=== PATIENT | female | born 1955 | race Caucasian/White ===

== ENCOUNTER 2022-08-25 13:42 | Outpatient (CLI) | payer MEDICARE, SELFPAY ==
--- NOTE | 2022-08-25 13:57 | MM_ITS ---
WS: [id number] BILATERAL 3D TOMOSYNTHESIS DIGITAL SCREENING MAMMOGRAPHY WITH CAD CLINICAL INFORMATION: SCREENING HISTORY: Screening mammogram. Chronic RIGHT lateral breast pain. History of benign biopsies. COMPARISON: 2020 TECHNIQUE: Bilateral CC and MLO views. FINDINGS: Scattered fibroglandular densities bilaterally. No suspicious focal mass, asymmetry, calcifications, or architectural distortion. No evidence of malignancy. Punctate and lucent centered calcifications. Vascular calcification. Asymmetric density upper outer LEFT breast stable since 2019. Stable bilatera l ovoid nodular densities previously evaluated. MM/[place] [id number] IMPRESSION: BI-RADS: 2-Benign FOLLOW UP: 1 Year Follow-up Recommend return to annual screening mammography.
== END 2022-08-25 13:43 | disposition home or self-care (01) ==
PROVIDERS: PCP Family Medicine; Visit Provider Family Medicine
DX: Z12.31 Encounter for screening mammogram for malignant neoplasm of breast (principal)
CPT/HCPCS: 77063; 77067

== ENCOUNTER → 2024-03-14 13:12 | Outpatient (BNVA) | payer MEDICARE, SELFPAY | PROVIDERS: PCP Family Medicine; Visit Provider Specialist | DX: M17.12 Unilateral primary osteoarthritis, left knee | CPT/HCPCS: 99204 ==

== ENCOUNTER 2024-12-15 17:02 | Emergency (ER) | payer MEDICARE, SELFPAY ==
--- OUTSIDE RECORDS SUMMARY | 2023-10-24 16:30 | XMS_ITS ---
Author Organization [facility] Address [address] [facility], [address] [place], [place] [id number] Care Team Providers Care Jewelry Polisher Name Role Phone Geeta Em MD Primary Care Provider Servando Murray Unavailable [phone] Servando Medina MD Unavailable Unavailable Migration, Provider Unavailable Unavailable [facility] Encounter Medications Medication SIG (Take, Route, Frequency, Duration) Notes Start Date End Date Status lamoTRIgine *Please review a nd pick correct strength-formulatio n from Medispan options. If intended option is not shown, discontinue and re-order from Quick Search* Active COMPRESSION STOCKINGS 20-30 20-30 [facility] PRN THIGH OR KNEE A:26 C:44.5 *Please review for potential replacement for e-prescription and drug interaction check* 12/11/2017 Active Levothyroxine Sodium *Please rev iew and pick correct strength-formulatio n from Medispan options. If intended option is not shown, discontinue and re-order from Quick Search* Active Encounters Encounter Location Date Provider Diagnosis [facility] [address] [facility] [place], [place] [id number] 10/24/2023 Provider Migration Plan Of Treatment No Information Progress Notes * Gregor MILLER LDOB: (69 yo F)Acc No.[id number]:10/24/2023 Patient: Gregor GALLAGHER Provider: Norris lazcano Migration :1955 A ge:68 Y S ex:Female Date:10/24/2023 Address:[address], [id number] Pcp:Geeta Em MD Subjective: * Chief Complaints: * 1 . [facility] To [facility] Conversion Encounter. * Medical History: * Medications: T aking Levothyroxine Sodium , Notes to Pharmacist: *Please review and pick correct strength-formulation from Medispan options. If intended option is not shown, discontinue and re-order from Quick Search*, Taking lamoTRIgine , Notes to Pharmacist: *Please review and pick correct strength-formulation from Medispan options. If intended option is not shown, discontinue and re-order from Quick Search*, Taking COMPRESSION STOCKINGS 20-30 20-30 [facility] PRN THIGH OR KNEE A:26 C:44.5 , Notes to Pharmacist: *Please review for potential replacement for e- prescription and drug interaction check* Objective: * Vitals: Assessment: Plan: * Treatment: * Images: * Electronic signature of Prov ider Migration on 12/15/2024 at 03:11 PM PDT Sign off status: Pending * Provider: Norris lazcano Migration Date: 0 10/24/2023 Generated for Bozena colon/Stefani/Phillyitting on: 1 03:11 PM PDT
[2024-12-15 17:04] VITALS: BP 157/97; PULSE 72; RESP 18; TEMP 36.9; O2SAT 96
--- NOTE | 2024-12-15 17:05 | XRR_ITS ---
PROCEDURE INFORMATION: Exam: XR Chest Exam date and time: 12/15/2024 5:08 PM Age: 69 years old Clinical indication: Psych clearance TECHNIQUE: Imaging protocol: Radiologic exam of the chest. Views: 1 view. COMPARISON: No relevant prior studies available. FINDINGS: Lungs: Interstitial prominence, most pronounced in the right lung base. No consolidation. Pleural spaces: Unremarkable. No pleural effusion. No pneumothorax. Heart/Mediastinum: Unremarkable. No cardiomegaly. Bones/joints: Unremarkable. XR/XR chest 1V portable [id number] IMPRESSION: Mild interstitial prominence , particularly in the right lung base. Findings may reflect chronic interstitial changes, pulmonary edema or atypical/viral infection.
--- OUTSIDE RECORDS SUMMARY | 2024-12-15 17:11 | XMS_ITS | Clinical Summary ---
Author Organization [facility] [place] Address [address] [place] [address] Phone Care Team Providers Care Process Design Engineer Name Role Phone Charisse Mckeon MD Primary Care Provider Allergies Active Allergy Reactions Criticality Noted Date Comments Meperidine Hallucination Low 03/03/2022 Demerol Medications calcium carbonate/vitam in D3 (CALCIUM WITH VITAMIN D3 ORAL) Take 1,200 mg by mouth daily. Active ibuprofen (MOTRIN) 800 mg tabletIndicatio ns:Pain involving joints of fingers of both hands Take 1 Tablet (800 mg) by mouth every 8 hours as needed for Pain, Mild. 90 Tablet 2 12/05/2022 Active celecoxib (CeleBREX) 200 mg capsule TAKE 1 CAPSULE BY MOUTH EVERY DAY 30 Capsule 1 02/15/2024 Active lamoTRIgine (LaMICtal) 200 mg tablet Take 2 Tablets (400 mg) by mouth daily. 200 Tablet 1 06/10/2024 Active lisinopriL (PRINIVIL) 10 mg tablet Take 1 Tablet (10 mg) by mouth daily. 100 Tablet 1 06/10/2024 Active levothyroxine 100 mcg tablet Take 1 Tablet (100 mcg) by mouth daily in the morning. 100 Tablet 1 06/10/2024 Active escitalopram oxalate (LEXAPRO) 10 mg tablet Take 1 Tablet (10 mg) by mouth daily. 100 Tablet 1 06/10/2024 Active triamcinolone acetonide (KENALOG) 0.025 % CreamIndication s:Rash,Urticari a Apply to affected area 2 times daily. Apply to affected area on leg 15 Gram 10/11/2024 Active predniSONE (DELTASONE) 10 mg tabletIndicatio ns:Rash,Urticar ia Take 4 tablets for 3 days then 3 tablets for 3 days then 2 tablets for 3 days and 1 tablet for 3 days 30 Tablet 10/18/2024 Active Active Problems Problem Noted Date Diagnosed Date Fall (on)(from) sidewalk curb, initial encounter 03/03/2022 Acute pain of right knee 03/03/2022 Acute midline low back pain without sciatica 10/2022 Benign hypertension 10/24/2021 Situational depression 10/24/2021 Hypothyroidism 10/24/2021 LBBB (left bundle branch block) 10/24/2021 Resolved Problems Problem Noted Date Diagnosed Date Resolved Date Moderate episode of recurren t major depressive disorder 03/17/2022 06/05/2023 Nonintractable epilepsy with out status epilepticus 10/24/2021 10/11/2024 Encounters Date Type Department Care Team Description 11/09/2024 External Device Data [facility] ABSTRACTION Provider, Abstract 10/25/2024 External Device Data [facility] ABSTRACTION Provider, Abstract 10/18/2024 Orders Only [address] [phone] Carmelita Reynolds, WIRE STRANDER Rash (Primary Dx); Urticaria 10/17/2024 Nurse Triage [address] [phone] Charisse Mckeon MD 10/11/2024 4:40 PM CDT Office Visit [address] [phone] Carmelita Reynolds, WIRE STRANDER Rash (Primary Dx); Urticaria 10/11/2024 External Device Data [facility] ABSTRACTION Provider, Abstract from Last 3 Months Immunizations Immunization Administration Dates Next Due Zoster Vaccine Live SQ 08/29/2022,04/10/2022 Family History Medical History Relation Name Comments Heart Disease Mother Heart Disease Other Heart Disease Paternal Grandfather Heart Disease Paternal Grandmother Breast Cancer Sister HALF Relation Name Status Comments Mother Other Paternal Grandfather Paternal Grandmother Sister HALF Alive Social History Tobacco Use Types Packs/Day Years Used Date Smoking Tobacco: Never Smokeless Tobacco: Never Tobacco Cessation:Counseling Given: Not Answered Alcohol Use Standard Drinks/Week Comments Yes 0 (1 standard drink = 0.6 oz pur e alcohol) Financial Resource Strain Answer Date R ecorded How hard is it for you to pa y for the very basics like food, housing, medical care, and heating? Patient declined 01/20/2022 Food Insecurity Answer Date Recorded In the past 12 months, have you worried that your food would run out before you had money to buy more? Patient declined 2021 In the past 12 months, did y ou run out of food and didn't have money to buy more? Patient declined 01/20/2022 Transportation Needs Answer Date Record ed In the past 12 months, has l ack of transportation kept you from medical appointments or from getting medications? Patient declined 01/20/2022 Lack of Transportation (Non-Medical) Not on file 01/20/2022 Feeling Safe Answer Date Recorded Are you in a relationship wi th someone who hurts you emotionally and/or physically? No 04/12/2023 Comments No Sex and Gender Information Value Date Recorded Sex Assigned at Not on file Legal Sex Female 9:40 AM CDT Gender Identity Not on file Sexual Orientation Not on file Last Filed Vital Signs Vital Sign Reading Time Taken Comments Blood Pressure 110/83 10/11/2024 4:29 PM CDT Pulse 75 10/11/2024 4:29 PM CDT Temperature 36.2 C (97.2 F) 10/11/2024 4:29 PM CDT Respiratory Rate 16 10/11/2024 4:29 PM CDT Oxygen Saturation 96% 10/11/2024 4:29 PM CDT Inhaled Oxygen Concentration - - Weight 80.6 kg (177 lb 9.6 oz) 10/11/2024 4:29 P M CDT Height 161.3 cm (5' 3.5 ) 10/11/2024 4:29 PM CDT Body Mass Index 30.97 10/11/2024 4:29 PM CDT Plan of Treatment Upcoming Encounters Date Type Department Care Team (Late st Contact Info) Description 01/02/2025 2:40 PM RETAIL ADVERTISING SALES MANAGER Office Visit [facility] [address] [phone] Charisse Mckeon MD [address] [phone] Health Maintenance Due Date Last Done Comments Pre-Diabetes and Diabetes Screening 1955 FIT/ DNA Q 3 YEARS (AUTO ORDER) 1972 FIT/FOBT Q 1 YEAR (AUTO ORDER) 1972 PNEUMOCOCCAL VACCINE 50+ YEA RS (1 of 2 - PCV) 1973 FIT-DNA Q 3 years 08/22/1999 FIT/FOBT Q 1 year 08/22/1999 Flex Sig/CT Colonography Q 5 years 08/22/1999 RSV VACCINE (60+ or ) (1 - Risk 50-74 years 1-dose series) 2004 ZOSTER VACCINE (2 of 3) 10/24/2022 08/29/2022, 04/10 [place] Preventative Visit/Annual Wellness Visit 02/24/2024 12/31/2023, 08/25/2022, 01/20/2022 INFLUENZA VACCINE (#1) 2024 4, 06/05/2023, 12/16/2016 COVID-19 Vaccine (3 - 2024-2 6 season) 2024 12/18/2020, 11/20/2020 FLEX SIG/CT COLONOGRAPHY Q 5 YEARS (AUTO ORDER) 12/01/2024 12/02/2019, 12/02/2019 BREAST CANCER SCREENING 02/09/2025 02/10/20 24, 08/25/2022, 11/25/2019, Additional history exists OSTEOPOROSIS SCREENING 03/03/2027 3, 01/04/2021, 01/04/2021, Additional history exists DTAP/TDAP/TD VACCINES (2 - T d or Tdap) 02/21/2029 02/21/2019 COLORECTAL CANCER SCREENING (AUTO ORDER) 12/01/2029 12/02/2019 COLORECTAL SCREENING 12/01/2029 12/02/2019 Colorectal Cancer Screening (AUTO ORDER) 12/01/2029 Colorectal Cancer Screening 12/01/2029 Procedures Procedure Name Priority Date/Time Associated Diagnosis Comments MAMMO 3D EMILY SCREEN BILAT W OR WO CAD Routine 02/10/2024 12:30 PM RETAIL ADVERTISING SALES MANAGER Screening mammogram, encounter for XR DEXA BONE DENSITY AXIAL 1 OR MORE SITES Routine 03/03/2022 11:31 AM RETAIL ADVERTISING SALES MANAGER Asymptomatic menopause ENDOSCOPY, COLON, SCREENING Routine 12/02/2019 from Last 3 Months or Most Recently Relevant to Health Maintenance Results * MAMMO 3D EMILY SCREEN BILAT W OR WO CAD (02/10/2024 12:30 PM RETAIL ADVERTISING SALES MANAGER) Anatomical Region Laterality Modality Breast Bilateral Mammography, Dig ital Radiography Impressions 02/26/2024 3:24 PM RETAIL ADVERTISING SALES MANAGER : No mammographic evidence of malignancy. BI-RADS ASSESSMENT: 1 - Negative RECOMMENDATION: Routine annual screening mammography. Narrative 02/26/2024 3:24 PM RETAIL ADVERTISING SALES MANAGER EXAM: MAMMO SCRN BILAT 3D EMILY W OR WO CAD INDICATION: Screening COMPARISON: 08/25/2022 MAMMO PRIOR STUDY, 11/25/2019 MAMMO PRIOR STUDY, 11/25/2019 MAMMO PRIOR STUDY, 10/06/2018 MAMMO PRIOR STUDY, 10/06/2018 MAMMO PRIOR STUDY, 09/17/2018 MAMMO PRIOR STUDY, 12/05/2016 MAMMO PRIOR STUDY, and 12/05/2016 MAMMO PRIOR STUDY BREAST COMPOSITION: There are scattered areas of fibroglandular density. FINDINGS: RIGHT BREAST: There are no suspicious masses, calcifications, or areas of architectural distortion. LEFT BREAST: There are no suspicious masses, calcifications, or areas of architectural distortion. us Charisse Mckeon MD MAMMO ORDERABLES Final Resu lt * XR DEXA BONE DENSITY AXIAL 1 OR MORE SITES (03/03/2022 11:31 AM RETAIL ADVERTISING SALES MANAGER) T-SCORE SPINE -0.30 -1.0 - 1.0 INTER FACE SYSTEM T-SCORE HIP (LEFT) -0.30 -1.0 - 1.0 INTERFACE SYSTEM Anatomical Region Laterality Modality Digital Radiogra phy 03/03/2022 11:3 1 AM RETAIL ADVERTISING SALES MANAGER Impressions 03/03/2022 12:50 PM RETAIL ADVERTISING SALES MANAGER IMPRESSION: Abnormal examination Bone density lies in the osteopenic range in the left proximal femur at the average the patient's age-matched control consistent with age-appropriate physiologic demineralization responsible for her osteopenia. NOF guidelines recommend consideration of FDA-approved medical therapies in patients with FRAX determined 10-year probabilities of hip/major osteoporosis-related fractures equal or greater than 3%/20% respectively. FRAX determined 10-year fracture risk for hip and major osteoporotic fractures are 1.4 and 14% respectively. Narrative 03/03/2022 12:50 PM RETAIL ADVERTISING SALES MANAGER DEXA Evaluation of the Lumbar Spine and Left Proximal Femur Reason for Consultation: Ovarian failure for osteoporosis screening. Evaluation of bone mineral density. The following absorptiometry data were obtained. The quality of this examination is acceptable with regards to count density, processed images, data display and lack of important artifacts (including but not limited to motion and attenuation artifacts). Serial examination number 1. Lumbar spine images demonstrate scoliotic and degenerative changes with spurious elevation of bone density prominent at lower levels. L1-L4 BMD (g/cm2): 1.018 Adult T-score: -0.3 Adult Z-score: 1.7 Left Femoral Neck BMD (g/cm2): 0.706 Adult T-score: -1.3 Adult Z-score: 0.4 Left Total Hip BMD (g/cm2): 0.911 Adult T-score: -0.3 Adult Z-score: 1.1 Procedure Note Destin Maldonado MD - 03/03/2022 DEXA Evaluation of the Lumbar Spine and Left Proximal Femur Reason for Consultation: Ovarian failure for osteoporosis screening. Evaluation of bone mineral density. The following absorptiometry data were obtained. The quality of this examination is acceptable with regards to count density, processed images, data display and lack of important artifacts (including but not limited to motion and attenuation artifacts). Serial examination number 1. Lumbar spine images demonstrate scoliotic and degenerative changes with spurious elevation of bone density prominent at lower levels. L1-L4 BMD (g/cm2): 1.018 Adult T-score: -0.3 Adult Z-score: 1.7 Left Femoral Neck BMD (g/cm2): 0.706 Adult T-score: -1.3 Adult Z-score: 0.4 Left Total Hip BMD (g/cm2): 0.911 Adult T-score: -0.3 Adult Z-score: 1.1 IMPRESSION: Abnormal examination Bone density lies in the osteopenic range in the left proximal femur at the average the patient's age-matched control consistent with age-appropriate physiologic demineralization responsible for her osteopenia. NOF guidelines recommend consideration of FDA-approved medical therapies in patients with FRAX determined 10-year probabilities of hip/major osteoporosis-related fractures equal or greater than 3%/20% respectively. FRAX determined 10-year fracture risk for hip and major osteoporotic fractures are 1.4 and 14% respectively. Charisse Mckeon MD DIAGNOSTIC IMAGING ORDERABL ES Final Result * ENDOSCOPY, COLON, SCREENING (12/02/2019) Abstract Provider GI PROCEDURE ORDERABLES Final Result from Last 3 Months or Most Recently Relevant to Health Maintenance Insurance [facility] [id number] Care Teams Process Design Engineer Relationship Specialty Start Date End Date Charisse Mckeon MD [address] [phone] PCP - General Family Practice 10/24/21
--- OUTSIDE RECORDS SUMMARY | 2024-12-15 17:12 | XMS_ITS | Patient Health Record ---
Author Organization [facility] Address [address] [facility], [address] [id number] Care Team Providers Care Product Safety Head Name Role Phone Maria Antonia JENNINGS, Geeta Primary Care Provider Servando Murray Unavailable [phone] Servando Medina MD Unavailable Unavailable Reason For Referral No Information Medications Medication SIG (Take, Route, Frequency, Duration) [...] discontinue and re-order from Quick Search* Active Social History Tobacco Use: Social History Observation Description Date Details (start date - stop date) Never Smoker NA - NA Alcohol Question Answer Notes Did you have a drink contain ing alcohol in the past year? Yes How often did you have a dri nk containing alcohol in the past year? Two to four times a month (2 points) How many drinks did you have on a typical day when you were drinking in the past year? 1 or 2 (0 points) Points 2 Tobacco: Question Answer Notes Are you a: never smoker Alcohol Screen Question Answer Notes Interpretation Negative Problems Problem Type SNOMED Code ICD Code Onset Dates Problem Status W/U Status Risk Notes Problem Varicose veins of bilateral lower limbs ([id number] 9106) Varicose veins of bilateral lower extremities with other complications (I83.893) Active confirmed Plan Of Treatment Pending Test Test Name Order Date Ultrasound : Leg venous, left 09/09/2018 Ultrasound : Legs venous, bilateral 02/2018 Ultrasound : Legs venous, bilateral 12/24 Insurance Providers Payer Name Payer Address Payer Phone Subscriber Number Group Number Insured Name Patient Relationship to Insured Coverage Start Date Coverage End Date [facility] [address] [facility] [address] 7223 [id number] Gregor Miller Self - patient is the insured MED[employer] OF [place] [address] [place], [place] [phone] [id number] Gregor Miller Self - patient is the insured Medical (General) History Medical History History ICD Code Epilepsy Surgical History Surgery Date(Month/Year) Hysterectomy 1989 Parathyroid removal 2013 Right leg RFA(GSV)+sclero 08/13/18 Left leg RFA(GSV)+sclero 08/27/18
[2024-12-15 17:31] LABS: Hematocrit 40.9 % (36-47); Hemoglobin 13.60 g/dL (11.27-16.99); Mean Corpuscular HGB Conc 33.3 g/dL (30-55); Mean Corpuscular Hemoglobin 30.5 pg (27-33); Mean Corpuscular Volume 91.7 fl (85-98); Nucleated Red Blood Cells % 0 %; Platelet Count 242 10^3/cmm (157-399); Red Blood Count 4.46 10^6/uL (3.85-5.65); White Blood Count 7.61 10^3/uL (3.29-11.43)
--- NOTE | 2024-12-15 17:37 | CTR_ITS ---
PROCEDURE INFORMATION: Exam: CT Head Without Contrast Exam date and time: 12/15/2024 6:19 PM Age: 69 years old Clinical indication: Confusion, altered mental status TECHNIQUE: Imaging protocol: Computed tomography of the head without contrast. Radiation optimization: All CT scans at this facility use at least one of these dose optimization techniques: automated exposure control; mA and/or kV adjustment per patient size (includes targeted exams where dose is matched to clinical indication); or iterative reconstruction. COMPARISON: No relevant prior studies available. RADIATION DOSE METRICS: Total DLP (mGy-cm): 1130.53 FINDINGS: Brain: No mass effect. No hemorrhage. Patchy areas of periventricular and subcortical white matter hypoattenuation, likely the sequela of microvascular ischemic changes. No loss of lopez-white differentiation to suggest an acute infarct. Cerebral ventricles: No ventriculomegaly. Paranasal sinuses: Visualized sinuses are unremarkable. No fluid levels. Mastoid air cells: Visualized mastoid air cells are well aerated. Bones: Unremarkable. No acute fracture. Soft tissues: Unremarkable. CT/CT head wo con* [id number] IMPRESSION: 1. No acute intracranial hemorrhage. 2. Background chronic microvascular ischemic changes.
[2024-12-15 17:44] LABS: Ammonia 17 umol/L (11-51)
[2024-12-15 17:46] LABS: Lactic Sepsis W/Reflex 0.9 mmol/L (0.5-2.2)
--- NOTE | 2024-12-15 17:50 | ECG_ITS ---
[facility] Test Date: 2024-12-15 Pat Name: Gregor Miller Department: Room: Gender: Female Real Property Evaluator: : 1955 Requested By: Ann Seymour Order Number: [id number] Awad MD: Pete Mccoy M.D. Measurements Intervals Victor Rate: 66 P: 53 MT: 183 QRS: -13 QRSD: 144 T: 81 QT: 459 QTc: 484 Interpretive Statements SINUS RHYTHM LEFT BUNDLE BRANCH BLOCK [120+ ms QRS DURATION, 80+ ms Q/S IN V1/V2, 85+ ms R IN I/aVL/V5/V6] No previous ECG available for comparison Electronically Signed On 12-16-2024 15:24:52 CDT by Pete Mccoy M.D. [email or web address]
[2024-12-15 17:55] LABS: Alanine Aminotransferase 13 U/L (0-33); Albumin Level 4.4 g/dL (3.5-5.2); Alkaline Phosphatase 78 U/L (35-105); Anion Gap 16.5 (5-19); Aspartate Amino Transferase 17 U/L (0-32); Blood Urea Nitrogen 13 mg/dL (8-23); Calcium 9.3 mg/dL (8.5-10.5); Carbon Dioxide 27 mmol/L (22-29); Chloride 101 mmol/L (98-107); Globulin 2.9 g/dL (1.3-4.6); Glucose 87 mg/dL (65-115); Osmolality Calculated 289 mOsm/kg (285-295); Potassium 4.5 mmol/L (3.5-5.1); Sodium 140 mmol/L (136-145); Thyroid Stimulating Hormone 1.02 uIU/mL (0.27-4.20); Total Protein 7.3 g/dL (6.6-8.7)
--- NOTE | 2024-12-15 17:56 | W.ED.AMS ---
HPI - Altered Mental Status General: Chief Complaint: Altered Mental Status Stated Complaint: ams Time Seen by Provider: 12/15/24 17:04 History of Present Illness: Patient is a 69-year-old female with unknown history, not on any medications at this time that presents due to confusion. Last known well: Unknown. Patient does not remember waking up, breakfast, or lunch. Next of kin: Patient states her is unknown place. On her chart, it is her sister Alyse Symptoms: Confusion. Patient states year is: 2024 Next holiday: Thanksgiving, she does not remember that it is November Today is: Thursday (it is ) No sensory changes. No dysphagia. No dysarthria. No history of stroke. She is unaware of the fact if she is on aspirin. No mono neurological weaknesses. Denies word finding. Denies vertigo. Denies alcohol intake. Denies recent cold or illness. Refuses COVID swab. Related Data Home Medications ?Medication ?Instructions ?Recorded ?Confirmed lamotrigine 200 mg tablet 200 mg PO DAILY 03/14/24 03/14/24 lisinopril 2.5 mg tablet 2.5 mg PO DAILY 03/14/24 03/14/24 Previous Rx's ?Medication ?Instructions ?Recorded divalproex 500 mg tablet,extended 500 mg PO BEDTIME #60 tabs 12/15/24 release 24 hr (Depakote ER) Allergies Allergy/AdvReac Type Severity Reaction Status Date / Time meperidine (From Demerol) Allergy Intermediate ADR-Halluci Verified 03/14/24 13:43 nating Review of Systems General: Reports: 10 or more systems reviewed and unremarkable except in HPI and below Const: Denies: fever(s) or chills Card: Denies: chest pain or orthopnea Resp: Denies: dyspnea, productive cough or wheezing GI: Denies: abdominal pain, nausea or vomiting Musc: Reports: joint pain, joint swelling, joint stiffness and limited range of motion Skin/Breast: Denies: rash, pruritus or dry skin Neuro: Denies: numbness in extremities or weakness in extremities Psych: Denies: anxiety Neal/Lymph: Denies: easy bruising or easy bleeding PFSH ED PFSH: Social History Smoking and tobacco/nicotine status: never used tobacco/nicotine Physical Exam Const: COMMON NORMALS: alert ORIENTATION/CONSCIOUSNESS: Yes oriented to person and Yes oriented to place; not oriented to time HENMT: COMMON NORMALS: normocephalic, atraumatic, hearing grossly normal bilaterally, external ears normal, EAC's normal, TM's normal bilaterally, Normal external nose present, Normal nasal mucous membranes and turbinates present, moist oral mucous membranes, oropharynx normal, dentition normal and gingiva normal HEAD & SCALP: normocephalic and atraumatic NOSE: Normal external nose present and Normal nasal mucous membranes and turbinates present EXTERNAL EAR: Yes external ears normal EXTERNAL AUDITORY CANAL: EAC's normal TYMPANIC MEMBRANE: TM's normal bilaterally Neck/C-Spine: COMMON NORMALS: full ROM, no lymphadenopathy, supple and no meningeal signs Lymph: LYMPHATIC: no lymphadenopathy noted Chest: COMMONS NORMALS: normal inspection of the chest and normal palpation of entire chest wall Resp: COMMON NORMALS: normal respiratory effort, No retractions and clear to auscultation bilaterally AUSCULTATION: clear to auscultation bilaterally Cardio: COMMON NORMALS: regular rate and regular rhythm RATE: regular rate RHYTHM: regular rhythm GI: COMMON NORMALS: Normal to inspection, nondistended, normoactive bowel sounds present, Soft to palpation, non-tender and No hepatosplenomegaly present PALPATION: Yes Soft to palpation and Yes No hepatosplenomegaly present : COMMON NORMALS: Yes no CVA tenderness BLADDER/KIDNEY EXAM: Yes no CVA tenderness Back/Pelvis: COMMON NORMALS: no CVA tenderness and thoracic and lumbar spine normal to inspection Extremity: COMMON NORMALS: normal to inspection, full ROM and capillary refill normal Neuro: COMMON NORMALS: moves all extremities, no focal motor deficits, no sensory deficits noted, deep tendon reflexes 2+ bilaterally and gait normal SENSORIUM/ORIENTATION: Yes alert, Yes oriented to person, Yes oriented to place, No oriented to time and Yes other (appears confused; otherwise CN intact) MENINGEAL SIGNS: Yes no meningeal signs Psych: COMMON NORMALS: mental status grossly normal, Normal thought process present and cooperative THOUGHT PROCESS: Normal thought process present Course Reevaluation(s): Reevaluation #1: Patient is back to baseline, and doing well. Sisters are present at bedside. Explained what was going on. Depakote loaded. Added Depakote ER to lamotrigine. Patient is to follow-up with neurology and primary care physician where she is from and [place]. Vital Signs: Vital signs: Vital Signs Temperature 98.5 F 12/15/24 17:04 Pulse Rate 66 12/15/24 19:59 Respiratory Rate 16 12/15/24 18:41 Blood Pressure 161/84 12/15/24 19:59 Pulse Oximetry 96 12/15/24 19:59 Oxygen Delivery Me thod Room Air 12/15/24 18:41 MDM - Altered Mental Status Medical Decision Making Patient came to the ED via help with EMS and [facility] with confusion. She did not know when she was last well. She was essentially no historian. Attempted to get a hold of sister but is next of kin on her chart. She is from [place]. Sister Alyse called back and stated patient has a history of seizures and does act like this with her seizures. She is unaware what seizure medication she is on. Chart shows a lamotrigine which I have confirmed was last filled in August. I did get more information with sisters at bedside and patient back to baseline. She was coming over here for an appointment with the insurance writer. She has had increased stress the last 2 weeks. She does not know she took her lamotrigine today or not, because she cannot recall her events today. She is typically compliant to her seizure medications. She has not had a breakthrough seizure in a long time. Discussed with sister/patient that she will be placed on Depakote with her lamotrigine and follow-up with primary care physician and neurology. Medical Records I reviewed the patient's medical records. Lab Data I reviewed the patient's lab results. 12/15/24 17:21 12/15/24 17:21 Radiology Impressions Chest X-Ray 12/15/24 17:05 IMPRESSION: Mild interstitial prominence , particularly in the right lung base. Findings may reflect chronic interstitial changes, pulmonary edema or atypical/viral infection. Head CT 12/15/24 17:37 IMPRESSION: 1. No acute intracranial hemorrhage. 2. Background chronic microvascular ischemic changes. Laboratory Results WBC 7.61 10^3/uL (3.29-11.43) 12/15/24 17:21 RBC 4.46 10^6/uL (3.85-5.65) 12/15/24 17:21 Hgb 13.60 g/dL (11.27-16.99) 12/15/24 17:21 Hct 40.9 % (36-47) 12/15/24 17:21 MCV 91.7 fl (85-98) 12/15/24 17:21 MCH 30.5 pg (27-33) 12/15/24 17:21 MCHC 33.3 g/dL (30-55) 12/15/24 17:21 RDW 13.4 % (12.1-15.1) 12/15/24 17:21 Plt Count 242 10^3/cmm (157-399) 12/15/24 17:21 MPV 8.8 fL (7.4-10.4) 12/15/24 17:21 Neut % (Auto) 50.7 % 12/15/24 17:21 Lymph % (Auto) 37.6 % 12/15/24 17:21 [facility] % (Auto) 7.9 % 12/15/24 17:21 Eos % (Auto) 2.4 % 12/15/24 17:21 Baso % (Auto) 1.1 % 12/15/24 17:21 Neut # (Auto) 3.87 10^3/uL (1.8-7.7) 12/15/24 17:21 Lymph # (Auto) 2.9 10^3/uL (0.8-4.8) 12/15/24 17:21 [facility] # (Auto) 0.6 10^3/uL (0.2-0.9) 12/15/24 17:21 Eos # (Auto) 0.2 10^3/uL (0.0-0.8) 12/15/24 17:21 Baso # (Auto) 0.1 10^3/uL (0.0-0.1) 12/15/24 17:21 Nucleated RBC % (auto) 0 % 12/15/24 17:21 Nucleated RBCs # 0.0 /100WBC 12/15/24 17:21 Sodium 140 mmol/L (136-145) 12/15/24 17:21 Potassium 4.5 mmol/L (3.5-5.1) 12/15/24 17:21 Chloride 101 mmol/L (98-107) 12/15/24 17:21 Carbon Dioxide 27 mmol/L (22-29) 12/15/24 17:21 Anion Gap 16.5 (5-19) 12/15/24 17:21 BUN 13 mg/dL (8-23) 12/15/24 17:21 Creatinine 0.7 mg/dL (0.5-0.9) 12/15/24 17:21 GFR Calculation 82.7 mL/min (90-130) L 12/15/24 17:21 Glucose 87 mg/dL (65-115) 12/15/24 17:21 Calculated Osmolality 289 mOsm/kg (285-295) 12/15/24 17:21 Lactic Acid 0.9 mmol/L (0.5-2.2) 12/15/24 17:21 Calcium 9.3 mg/dL (8.5-10.5) 12/15/24 17:21 Total Bilirubin 0.3 mg/dL (0.15-1.2) 12/15/24 17:21 AST 17 U/L (0-32) 12/15/24 17:21 ALT 13 U/L (0-33) 12/15/24 17:21 Alkaline Phosphatase 78 U/L (35-105) 12/15/24 17:21 Ammonia 17 umol/L (11-51) 12/15/24 17:21 Total Protein 7.3 g/dL (6.6-8.7) 12/15/24 17:21 Albumin 4.4 g/dL (3.5-5.2) 12/15/24 17:21 Globulin 2.9 g/dL (1.3-4.6) 12/15/24 17:21 TSH 1.02 uIU/mL (0.27-4.20) 12/15/24 17:21 Urine Color Yellow (Yellow) 12/15/24 17:56 Urine Appearance Clear (CLEAR) 12/15/24 17:56 Urine pH 6.0 (5-7) 12/15/24 17:56 Ur Specific Bosler 1.010 (1.005-1.030) 12/15/24 17:56 Urine Protein Negative (Negative) 12/15/24 17:56 Urine Glucose (UA) Negative (Normal) 12/15/24 17:56 Urine Ketones Negative (Negative) 12/15/24 17:56 Urine Blood Trace (Negative) A 12/15/24 17:56 Urine Nitrate Negative (Negative) 12/15/24 17:56 Urine Bilirubin Negative (Negative) 12/15/24 17:56 Urine Urobilinogen 0.2 mg/dL (Negative) 12/15/24 17:56 Ur Leukocyte Esterase Trace (Negative) A 12/15/24 17:56 Urine RBC 0-2 /hpf (0-2) 12/15/24 17:56 Urine WBC 6-10 /hpf (0-5) 12/15/24 17:56 Ur Squamous Epith Cells 0-5 /hpf (0-5) 12/15/24 17:56 Amorphous Sediment Not Reportable 12/15/24 17:56 Urine Bacteria None seen /hpf (NONE) 12/15/24 17:56 Hyaline Casts 0.81 /lpf 12/15/24 17:56 Salicylates < 0.3 mg/dL (3-10) L 12/15/24 17:21 Urine Opiates Screen Negative ng/mL (Negative) 12/15/24 17:56 Acetaminophen < 5.0 ug/mL (10-30) L 12/15/24 17:21 Ur Barbiturates Screen Negative ng/mL (Negative) 12/15/24 17:56 Ur Phencyclidine Scrn Negative ng/mL (Negative) 12/15/24 17:56 Ur Amphetamines Screen Negative ng/mL (Negative) 12/15/24 17:56 U Benzodiazepines Scrn Negative ng/mL (Negative) 12/15/24 17:56 Urine Cocaine Screen Negative ng/mL (Negative) 12/15/24 17:56 U Marijuana (THC) Screen Negative ng/mL (Negative) 12/15/24 17:56 Ethyl Alcohol < 10 mg/dL (0-10) 12/15/24 17:21 All radiology interpretation(s) finalized by discharge Discharge Plan Discharge Patient Disposition: Home Clinical Impression: Seizure Condition: Stable Prescriptions: New divalproex [Depakote ER] 500 mg tablet extended release 24 hr 500 mg PO BEDTIME Qty: 60 0RF No Action lamotrigine 200 mg tablet 200 mg PO DAILY lisinopril 2.5 mg tablet 2.5 mg PO DAILY Discharge Orders: Discharge ED (Routine); Ordered 12/15/24 Ordered By: Sylvia Wittke Referrals: Mariah Mckeon MD [Primary Care Provider, Family Practice] Patient Instructions: Altered Mental Status (ED), Patient Portal & Esther Instructions, Seizures Activity Restrictions/Additional Instructions: - No driving until cleared by the neurologist - No bathing alone until cleared by neurologist - No swimming alone until cleared by neurologist - No operating heavy equipment until cleared by neurologist -- Return to ED if you have ongoing symptoms. -- Continue your lamotrigine at 200 mg x 2 pills daily. Your new prescription of Depakote to be taken at night has been sent to the pharmacy. Thank you for choosing [facility] for your healthcare needs today. You have been screened and evaluated and felt safe for discharge. Health conditions do change or evolve sometimes and as such it is important that you follow up with your Primary Doctor to be re checked, 3-5 days is a general good time frame for follow up. You are always welcome to return to the ED for re assessment if your symptoms are worsening or you have new concerns Print Language: Kinyarwanda Coding Level of Care Code ED Private Advisor for Karl Pool
--- NOTE | 2024-12-15 17:57 | PC.NURSE ---
Pt refused nasal swab. Romaine notified.
[2024-12-15 18:00] LABS: Acetaminophen < 5.0 ug/mL (10-30); Alcohol Level < 10 mg/dL (0-10); Salicylate < 0.3 mg/dL (3-10)
--- NOTE | 2024-12-15 18:16 | PC.NURSE ---
Kassandra Esparza' Kassandra states pt has grand mal seizures, does take medication; unknown what medication and when it was last taken.
[2024-12-15 18:18] LABS: Glucose Urine UA Negative (Normal); Nitrate Urine Negative (Negative); Specific Gravity, Urine 1.010 (1.005-1.030)
[2024-12-15 18:23] LABS: Add Urine Microscopic? YES
[2024-12-15 18:26] LABS: PCP Screen Urine Negative (Negative)
[2024-12-15 18:41] VITALS: BP 141/93; PULSE 65; RESP 16; O2SAT 95
[2024-12-15] MEDS: valproic acid 500 mg/5 mL SDV 1000 MG IV (19:24)
[2024-12-15 19:59] VITALS: BP 161/84; PULSE 66; O2SAT 96
== END 2024-12-15 20:00 | disposition home or self-care (01) ==
PROVIDERS: Emergency Medicine; Emergency Provider Physician Assistant; PCP Family Medicine
DX: R56.9 Unspecified convulsions (principal)
CPT/HCPCS: 36415; 70450; 71045; 80053; 80306; 80307; 81001; 82140; 83605; 84443; 85025; 93005; 96374; 99285; J3490; J9999